=== PATIENT | female | born 1980 | race Caucasian/White ===

== ENCOUNTER 2024-11-11 19:02 | Emergency (ER) | payer SELFPAY ==
--- OUTSIDE RECORDS SUMMARY | 2024-11-11 19:04 | XMS_ITS | Clinical Summary ---
Author Organization [employer] [facility] Address [address] [place] [id number] Care Team Providers Care Boarding Mother Name Role Phone Marcello Srivastava MD Primary Care Provider Allergies Active Allergy Reactions Criticality Noted Date Comments Codeine Hives Medium 11/02/2009 Medications No known medications Family History Medical History Relation Name Comments Cancer-breast Maternal Grandmother Cancer-breast Other Mat. Gr. Grandmother Cancer-ovarian No Family History Relation Name Status Comments Maternal Grandmother Other Mat. Gr. 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 Gender Identity Not on file Sexual Orientation Not on file Obstetrics History Last Filed Vital Signs Vital Sign Reading Time Taken Comments Blood Pressure 120/77 03/13/2019 11:24 AM DRAPERY OPERATOR Pulse 73 03/13/2019 11:24 AM DRAPERY OPERATOR Temperature 36.8 C (98.3 F) 03/13/2019 11:24 AM DRAPERY OPERATOR Respiratory Rate 16 07/10/2015 12:20 PM CDT Oxygen Saturation 97% 03/13/2019 11:24 AM DRAPERY OPERATOR Inhaled Oxygen Concentration - - Weight 63.3 kg (139 lb 9.6 oz) 03/13/2019 11:24 AM DRAPERY OPERATOR Height 172.7 cm (5' 8) 07/10/2015 8:11 AM CDT Body Mass Index 21.23 07/10/2015 8:11 AM CDT Plan of Treatment Health Maintenance Due Date Last Done Comments Tetanus booster 1990 Depression screening for age 12+ 1991 HIV for age 15-65 1994 BMI (ht and wt on same day) for age 18+ 1997 Hepatitis C screening for age 18-79 1997 Hepatitis B series for 19+ (1 of 3 - 19+ 3-dose series) 1998 COVID-19 vaccine series (2 - 2023- season) 2023 12/12/2020 Pap test for age 21-65 01/30/2024 , 01/29/2021, 05/11/2010, Additional history exists Colonoscopy through age 75 02/19/2024 Lipids for age 45-75 02/19/2024 Mammogram for age 45-75 02/19/2024 07/17/2022 Influenza Vaccine (#1) 2024 Pneumococcal series for age 6-49 Aged Out No longer eligible based on patient's age to complete this topic Medical Devices Implanted Type Area Directory Carrier Device Identifier Shelf Expiration Date Model / Serial / Lot [id number] 7breast 400cc Memorygel Rnd High Smooth Silcn [[id number]] Implanted:Qty: 1 on 07/10/2015 by Rahul Cabrera MD at [facility] Explanted:at [facility] (Quantity not on file) Right: Breast [employer] 02/23/2020 [id number] # / [id number] 6breast 400cc Memorygel Rnd High Smooth Silcn [[id number]] Implanted:Qty: 1 on 07/10/2015 by Rahul Cabrera MD at [facility] Explanted:at [facility] (Quantity not on file) Left: Breast [employer] 12/06/2019 [id number] # / [id number] Procedures Procedure Name Priority Date/Time Associated Diagnosis Comments XR MAMMO DARCY BILAT SCREEN IMPLANT Routine 07/17/2022 10:39 AM CDT Visit for screening mammogram HPV HIGH RISK Routine 01/29/2021 12:00 PM DRAPERY OPERATOR from Last 3 Months or Most Recently Relevant to Health Maintenance Results * XR MAMMO DARCY BILAT SCREEN IMPLANT (07/17/2022 10:39 AM CDT) Anatomical Region Laterality Modality BREASTS, Breast Left, Breast Right Bilateral Mammography Impressions 07/22/2022 2:06 PM CDT There is no radiographic evidence for malignancy. Recommend annual mammograms. MAMMOGRAM ASSESSMENT: ACR 2 Benign PATIENTS: You will also receive a letter with your examination results in an easy to read format. If you have questions about your results, please contact your referring provider. Narrative 07/22/2022 2:06 PM CDT For Patients: As a result of the Cures Act, medical imaging exams and procedure reports are released immediately into your electronic medical record. You may view this report before your referring provider. If you have questions, please contact your health care provider. XR MAMMO DARCY BILAT SCREEN IMPLANT [[id number]] CLINICAL HISTORY: This is an asymptomatic 42 y.o. patient. INDICATION FOR EXAM: Mammogram Screening. TECHNIQUE: CC & MLO views were obtained. Implant displacement views were obtained. This study was evaluated with the assistance of Computer-Aided Detection. Breast Tomosynthesis was used in interpretation. COMPARISON FILMS: Yes 06/27/15 Outside Facility FINDINGS: The breasts are heterogeneously dense, which may obscure small masses. No suspicious masses or microcalcifications. There are breast implant(s) present.. Rahul Cabrera MD MAMMO Final Re sult * HPV HIGH RISK (01/29/2021 12:00 PM DRAPERY OPERATOR) TYPE 16 Negative Negative 01/31/2021 10:37 AM DRAPERY OPERATOR [facility] TYPE 18 Negative Negative 01/31/2021 10:37 AM DRAPERY OPERATOR [facility] OTHER HIGH RISK TYPES Negative Negative 01/31/2021 10:37 AM DRAPERY OPERATOR [facility] Other (Cervical/Vagina l) 01/29/2021 12:00 PM DRAPERY OPERATOR 01/30/2021 9:15 AM DRAPERY OPERATOR Narrative [facility] - 01/31/2021 10:37 AM DRAPERY OPERATOR HPV types 16, 18, 31, 33, 35, 39, 45, 51, 52, 56, 58, 59, 66 and 68 DNA were undetectable or below the pre-set threshold. Methodology: Hakeem Violeta 4800 HPV Test us Meena Irene MD MICROBIOLOGY Final Res ult [facility] [address] [place] [address], from Last 3 Months or Most Recently Relevant to Health Maintenance Advance Directives * Full Code (Latest Code Status on File) Date Activated Date Inactivated Comments 07/10/2015 7:53 AM 07/10/2015 2:49 PM Care Teams Boarding Mother Relationship Specialty Start Date End Date Marcello Srivastava MD PCP - General Family Practice 07/17/22
[2024-11-11 19:26] VITALS: BP 133/87; PULSE 91; RESP 18; TEMP 37.1; O2SAT 98
[2024-11-11 19:35] LABS: Appearance Urine Clear (Clear)
--- NOTE | 2024-11-11 19:57 | CRLHL7_ITS ---
For Patients: As a result of the Cures Act, medical imaging exams and procedure reports are released immediately into your electronic medical record. You may view this report before your referring provider. If you have questions, please contact your health care provider. INDICATION: Left lower quadrant pain. TECHNIQUE: CT abdomen and pelvis acquired with 58 cc Isovue 370 IV contrast. COMPARISON: None. FINDINGS: Lower chest: Bilateral breast implants. Liver: Multiple subcentimeter hypodense lesions, too small to characterize. Gallbladder and bile ducts: Collapsed. Pancreas: Unremarkable Spleen: Unremarkable Adrenal glands: Unremarkable Kidneys: Unremarkable. No stones or hydronephrosis. GI tract: Unremarkable. Air distended rectum. Normal appendix. Vasculature: Abdominal aorta is normal in caliber. Mesenteric arteries are patent. Lymph nodes: No lymphadenopathy. Peritoneum/Abdominal Wall: Unremarkable Pelvis: Uterus is not visualized, likely status post hysterectomy. Left corpus luteum. Bones: No acute findings. IMPRESSION: No acute abdominal or pelvic pathology. Please note that all CT scans at this facility use dose modulation, iterative reconstruction, and/or weight-based dosing when appropriate to reduce radiation dose to as low as reasonably achievable. Dictated by Adan Talbot MD @ 11/11/2024 9:10:54 PM (Electronically Signed)
--- NOTE | 2024-11-11 20:09 | ED.ABDPAIN ---
HPI - Abdominal Pain General Date Seen: 11/11/24 Chief Complaint: Abdominal Pain Stated Complaint: abdomen/back pain Time Seen by Provider: 11/11/24 19:39 Source: patient Mode of arrival: ambulatory Limitations: no limitations History of Present Illness HPI narrative: Patient is a 44-year-old female presenting for left lower quadrant left flank pain. She states for the past month she has been having left lower quadrant pain that has become left flank pain over the past few days. Initially was having dysuria and states it felt like her previous UTIs. She is started on antibiotic that she cannot remember the knee above. Dysuria improved but she is still having the abdominal pain so she called her provider who started her on Bactrim a week ago. She is not feel like the symptoms have improved at all and states that now she is having the back pain. Has never had pain like this before. Did have some loose stools 3 days ago she states that was after she took a stool softener because she thought she was getting constipated from the medications. Has been very nauseated which Zofran has improved. Has not had any vomiting. Does state there has been no urine test done yet to prove she had a UTI. Has been having chills but no objective fevers. Denies chest pain, shortness of breath, vaginal bleeding, vaginal discharge, headache, vision changes, weakness, numbness. Related Data Previous Rx's ?Medication ?Instructions ?Recorded citalopram 40 mg tablet 40 mg PO DAILY #30 tabs 11/01/24 Allergies Allergy/AdvReac Type Severity Reaction Status Date / Time codeine Allergy Mild Rash Verified 11/11/24 20:22 minocycline Allergy Unknown Swelling Verified 11/11/24 20:22 Review of Systems Status of ROS Reports: 10 or more systems reviewed and unremarkable except as noted in History and below [facility] Surgical History Status post laparoscopic hysterectomy ?Z90.710 - Acquired absence of both cervix and uterus (ICD-10) History of tympanostomy tube placement ?Z96.22 - Myringotomy tube(s) status (ICD-10) History of endometrial ablation ?Z98.890 - Other specified postprocedural states (ICD-10) History of breast augmentation ?Z98.82 - Breast implant status (ICD-10) Social History Smoking Status: Unknown if ever smoked Exam Narrative: Exam Narrative: Const: Well-nourished, Well-developed, in mild distress Eyes: PERRL, no conjunctival injection, and symmetrical lids HENT: Atraumatic external nose and ears. Moist mucous membranes. Neck: Symmetric, trachea midline, No thyromegaly. CVS: RRR, No murmurs or gallops. Peripheral pulses 2+ and equal in all extremities RESP: Unlabored respiratory effort. Clear to auscultation bilaterally. GI: Left lower quadrant tenderness Nondistended, No rebound or guarding. Left CVA tenderness MSK:Extremities w/o deformity, Normal Active ROM Skin: Warm, Dry. No rashes or lesions. Neuro: Normal Muscle tone, No focal neurological deficits. Psych: Awake, Alert, & Oriented x3. Appropriate mood and affect. Const: Vital Signs, click to edit/add: Vital Signs - 24 hr 11/11/24 19:26 11/11/24 20:31 11/11/24 21:01 Temperature 98.8 F Pulse Rate 66 71 Pulse Rate [Pulse Oximeter] 91 Respiratory Rate 18 Blood Pressure 120/85 116/93 H Blood Pressure [Ri ght Upper Arm] 133/87 Pulse Oximetry 98 99 99 Oxygen Delivery Me thod Room Air Room Air Room Air Course Vital Signs Vital signs: Initial Vital Signs Temperature 98.8 F 11/11/24 19:26 Temperature Source Temporal Artery Scan 11/11/24 19:26 Pulse Rate 91 11/11/24 19:26 Respiratory Rate 18 11/11/24 19:26 Blood Pressure 133/87 11/11/24 19:26 Blood Pressure Mean 102 11/11/24 19:26 Blood Pressure Position Sitting 11/11/24 19:26 Pulse Oximetry 98 11/11/24 19:26 Oxygen Delivery Method Room Air 11/11/24 19:26 Vital Signs Temperature 98.8 F 11/11/24 19:26 Pulse Rate 91 11/11/24 19:26 Respiratory Rate 18 11/11/24 19:26 Blood Pressure 133/87 11/11/24 19:26 Pulse Oximetry 98 11/11/24 19:26 Oxygen Delivery Method Room Air 11/11/24 19:26 Temperature 98.8 F 11/11/24 19:26 Pulse Rate 71 11/11/24 21:01 Respiratory Rate 18 11/11/24 19:26 Blood Pressure 116/93 H 11/11/24 21:01 Pulse Oximetry 99 11/11/24 21:01 Oxygen Delivery Method Room Air 11/11/24 21:01 Medications Administered Medications: Discontinued Medications Generic Name Dose Route Start Last Admin Trade Name Efren PRN Reason Stop Dose Admin Lactated Ringer's 1,000 mls @ 1,000 mls/hr 11/11/24 19:57 11/11/24 21:12 Lactated Ringers 1000 Ml IV 11/11/24 20:56 Infused .Q1H ONE Infusion Ketorolac Tromethamine 15 mg 11/11/24 19:57 11/11/24 20:22 Ketorolac 15 Mg/Ml Inj IVP 11/11/24 19:58 15 mg ONCE ONE Administration Ondansetron HCl 4 mg 11/11/24 19:57 11/11/24 20:22 Ondansetron 2 Mg/Ml Inj IVP 11/11/24 19:58 4 mg ONCE ONE Administration MDM - Abdominal Pain MDM Narrative Medical decision making narrative: Patient is a 44-year-old female presenting for left lower quadrant abdominal pain and left flank pain. Differential at this time includes diverticulitis, UTI, pyelonephritis, urolithiasis. She is low risk for a AAA rupture. Vital signs are stable. Seems less likely to be appendicitis, pancreatitis, gallbladder liver disease due to location of pain. She has a previous abdominal surgeries so SBO was also on the differential. For order CT scan of the abdomen pelvis, CMP, urinalysis, CBC, viral swabs, lipase. Patient's lab work returned showing new acute concerning abnormalities. She is feeling better after the medication. Urine shows no signs of UTI but she has been on antibiotics for quite a while now. Viral swabs are still pending. CT scan reviewed myself the radiologist shows no acute concerning abnormalities. This time I cannot say was causing her pain by do believe she is safe for discharge. She is agreeable to this plan. She declined Toradol at discharge but I will center Zofran via [facility]. Lab Data Labs: Lab Results 11/11/24 11/11/24 Range/Units 19:05 20:07 WBC 7.88 (4.50-11.00) K/uL RBC 4.43 (4.00-5.20) m/uL Hgb 13.8 (12.0-16.0) gm/dL Hct 39.2 (33.0-51.0) % MCV 89 (80-100) fL MCH 31 (26-34) pg MCHC 35 (32-36) gm/dL RDW Coeff of Beverly 12.2 (11.5-15.5) % Plt Count 280 (140-440) K/uL Neut % (Auto) 60.0 (42.0-72.0) % Lymph % (Auto) 29.2 (20-44) % Stokes % (Auto) 8.0 (0.0-11.0) % Eos % (Auto) 1.9 (0.0-7.0) % Baso % (Auto) 0.8 (0.0-3.0) % Neut # (Auto) 4.73 (1.7-7.0) K/uL Lymph # (Auto) 2.30 (0.90-2.90) K/uL Stokes # (Auto) 0.60 (0.00-0.90) K/UL Eos # (Auto) 0.15 (0.00-0.50) K/uL Baso # (Auto) 0.06 (0.00-0.30) K/uL Abs Immat Gran (auto) 0.01 (0.00-0.30) K/uL Imm/Tot Granulo (auto) 0.1 % Sodium 137 (135-149) mmol/L Potassium 3.9 (3.6-5.1) mmol/L Chloride 105 (96-114) mmol/L Carbon Dioxide 23 (20-32) mmol/L Anion Gap 9 (7-15) mEq/L BUN 13 (5-24) mg/dL Creatinine 1.0 (0.5-1.5) mg/dL Estimated GFR 71 ml/min Glucose 93 (60-115) mg/dL Calcium 9.6 (8.4-10.6) mg/dL Total Bilirubin 0.2 (0.1-1.5) mg/dL AST 29 (12-35) U/L ALT 22 (4-35) U/L Alkaline Phosphatase 58 (40-150) U/L Total Protein 7.0 (6.0-8.3) g/dL Albumin 4.7 (3.3-5.0) g/dL Lipase 203 (23-300) U/L Urine Color Yellow (Yellow) Urine Appearance Clear (Clear) Urine pH 6.5 (5.0-8.5) Ur Specific Mack 1.015 (1.000-1.030) Urine Protein Negative (Negative) Urine Glucose (UA) Negative (Negative) Urine Ketones Negative (Negative) Urine Blood Trace-intact A (Negative) Urine Nitrite Negative (Negative) Urine Bilirubin Negative (Negative) Urine Urobilinogen 0.2 (0.2-1.0) Ur Leukocyte Esterase Negative (Negative) Urine RBC 0-2 (0-2) Urine WBC 0-2 (0-5) Ur Squamous Epith Cells Few (None-Few) Urine Bacteria None (None) Imaging Data CT scan abdomen and pelvis: Attestation: I have reviewed the pertinent imaging results. Radiologist's impression: No acute abdominal or pelvic pathology. Please note that all CT scans at this facility use dose modulation, iterative reconstruction, and/or weight-based dosing when appropriate to reduce radiation dose to as low as reasonably achievable. Dictated by Adan Talbot MD @ 11/11/2024 9:10:54 PM Discharge Plan Discharge Clinical Impression: Lt flank pain Abdominal pain Qualifiers: Abdominal location: left lower quadrant Qualified Code(s): R10.32 - Left lower quadrant pain Patient Disposition: Home, Self-Care Condition: Improved Instructions: Abdominal Pain (ED) Additional Instructions: I cannot say what exactly is causing your pain at this time I do recommend following up with the primary care provider. Return to emergency department for new or worsening symptoms. 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 Prescriptions: No Action citalopram 40 mg tablet 40 mg PO DAILY Qty: 30 0RF Follow Up/Referrals: Marcello Srivastava MD [Primary Care Provider, Family Practice] Stand Alone Forms: Violet Info Instructions
[2024-11-11] MEDS: ONDANSETRON 2 MG/ML inj 4 MG IVP (20:22)
[2024-11-11] MEDS: LACTATED RINGERS 1000 ML 1,000 ML IV (20:22)
[2024-11-11 20:31] VITALS: BP 120/85; PULSE 66; O2SAT 99
[2024-11-11 20:34] LABS: Hematocrit 39.2 % (33.0-51.0); Hemoglobin* 13.8 gm/dL (12.0-16.0); Immature Granulocytes Abs Auto 0.01 K/uL (0.00-0.30); Immature Granulocytes Pct Auto 0.1 %; Lymphocytes Absolute Auto 2.30 K/uL (0.90-2.90); Mean Corpuscular HGB Conc 35 gm/dL (32-36); Mean Corpuscular Hemoglobin 31 pg (26-34); Mean Corpuscular Volume 89 fL (80-100); RDW Coefficient of Variation % 12.2 % (11.5-15.5); Red Blood Count 4.43 m/uL (4.00-5.20); White Blood Count* 7.88 K/uL (4.50-11.00)
[2024-11-11 20:39] LABS: Slide Review Reflex No
[2024-11-11 20:41] LABS: Albumin* 4.7 g/dL (3.3-5.0); Chloride* 105 mmol/L (96-114); Potassium* 3.9 mmol/L (3.6-5.1); Sodium* 137 mmol/L (135-149)
[2024-11-11 20:44] LABS: Alanine Aminotransferase* 22 U/L (4-35); Alkaline Phosphatase* 58 U/L (40-150); Anion Gap 9 mEq/L (7-15); Aspartate Amino Transferase* 29 U/L (12-35); Bilirubin Total* 0.2 mg/dL (0.1-1.5); Blood Urea Nitrogen* 13 mg/dL (5-24); Calcium* 9.6 mg/dL (8.4-10.6); Carbon Dioxide* 23 mmol/L (20-32); Creatinine* 1.0 mg/dL (0.5-1.5); Estimated Glomerular Filt Rate 71 ml/min; Glucose* 93 mg/dL (60-115); Total Protein* 7.0 g/dL (6.0-8.3)
[2024-11-11 21:01] VITALS: BP 116/93; PULSE 71; O2SAT 99
[2024-11-11 21:02] VITALS: PULSE 72; O2SAT 99
[2024-11-11 21:15] VITALS: PULSE 69; O2SAT 99
[2024-11-11 21:28] LABS: PCR FLU A Negative PCR FLU A (Negative); PCR FLU B Negative PCR FLU B (Negative); PCR RSV Negative PCR RSV (Negative); SARS PCR* Negative SARS-CoV-2 (Negative)
== END 2024-11-11 21:32 | disposition home or self-care (01) ==
PROVIDERS: Emergency Provider Student in an Organized Health Care Education/Training Program; PCP Family Medicine
DX: R10.32 Left lower quadrant pain (principal); R10.9 Unspecified abdominal pain
CPT/HCPCS: 36415; 74177; 80053; 81001; 83690; 85025; 87631; 96374; 96375; 99284; 99285; J1885; J2405; J7120; Q9967